=== PATIENT | female | born 1965 | race Caucasian/White ===

== ENCOUNTER 2018-05-31 08:05 | Emergency (ER) | payer MEDICAID ==
[~2018-05-31] VITALS: Ht 162.6 cm; Wt 68.0 kg
[2018-05-31 08:09] VITALS: BP 132/85
--- NOTE | 2018-05-31 08:20 | NUR ---
ED Nurse Note: Assisted Dr Car for breast exam.
--- NOTE | 2018-05-31 08:27 | Emergency Room Report ---
History of Present Illness General Chief Complaint: Skin Rash/Abscess Source: Patient Present Illness HPI Patient present with complaints of palpable mass to the right upper breast area Patient reports that about a month ago she noticed the area she has spoken to her doctor Was told that she is getting set up for a mammogram however she has not had the appointment made and has not spoken to a specialist She had some discomfort to the region denies any fevers or chills denies any trauma Denies any chest pain or shortness of breath Denies any family history of breast cancer Patient's last menstrual cycle was 4 years ago Allergies: Coded Allergies: No Known Allergies (Unverified , 05/31/18) Patient History Past Medical History: see triage record Pertinent Family History: none Reviewed Nursing Documentation: PMH: Agreed; PSxH: Agreed Nursing Documentation-PMH Past Medical History: No Stated History Review of Systems All Other Systems: negative except mentioned in HPI Physical Exam Vital Signs Date Time Temp Pulse Resp B/P (MAP) Pulse Ox O2 Delivery O2 Flow Rate FiO2 05/31/18 08:09 98.2 80 16 132/85 98 Room Air Sp02 EP Interpretation: reviewed, normal General Appearance: well appearing, no apparent distress Head: normocephalic, atraumatic Eyes: bilateral eye PERRL, bilateral eye EOMI ENT: normal pharynx Neck: supple Respiratory: lungs clear, no retraction, no accessory muscle use Cardiovascular #1: regular rate, rhythm Musculoskeletal: normal inspection Neurologic: alert, oriented x3, responsive Skin: other - On the right breast on the upper lateral aspect, there is a palpable 1 x 1 cm firm mass causing a dimpling effect, the area will is otherwise normal without any obvious expressible material. The axilla does not show any nodes Lymphatic: no adenopathy Medical Decision Making Diagnostic Impression: Primary Impression: Breast mass in female ER Course Given the examination the palpable region, given the location of this mass These are all extremely concerning for malignancy At this time via the emergency room, there is not much that I am able to do unfortunately Patient's son reports that his girlfriend works here and he was also here for appendicitis therefore decided to present here It is reiterated the importance of my concern of the findings They will be contacting the physician tomorrow And require imaging and specialty referral Delay in diagnosis and initiation of care can lead to worsening symptoms and outcomes and this is clearly discussed with family and patient Last Vital Signs Date Time Temp Pulse Resp B/P (MAP) Pulse Ox O2 Delivery O2 Flow Rate FiO2 05/31/18 08:09 98.2 80 16 132/85 98 Room Air Status: unchanged Disposition: HOME, SELF-CARE Condition: Stable Scripts No Active Prescriptions or Reported Meds Additional Instructions: The findings on neuro exam today are extremely concerning. The area is concerning for cancer. Please present here physician's office tomorrow to check on the status and reiterate the importance of this discussion that I had with you. A mammogram is needed is noted to pursue further specialty referral and care Zee Car DO May 31, 2018 08:27
[2018-05-31 08:34] VITALS: BP 128/77
--- NOTE | 2018-05-31 08:34 | NUR ---
ED Nurse Note: Pt wqs seen due to right breast lump and dimpling. Pt cleared by health care provider for discharge. DC instructions was given and explained to pt and verbalized understanding of teachings. All front office medical assistant such as ID band removed. Pt is AAO x4, ambulatory and Pt/son left with all personal belongings.
== END 2018-05-31 08:34 | disposition home or self-care (01) ==
LOC: EMR 08:20
DX: N63.11 Unspecified lump in the right breast, upper outer quadrant (principal)
CPT/HCPCS: 99282